=== PATIENT | female | born 1960 ===

== ENCOUNTER 2025-03-09 09:44 | Outpatient (AMB) | payer MEDICAID, SELFPAY ==
--- OUTSIDE RECORDS SUMMARY | 2025-03-09 09:53 | XMS_ITS | Clinical Summary ---
Author Organization [facility] Address [address] [place] [address] Care Team Providers Care Resin Filterer Name Role Phone Laurel Flower PA-C Primary Care Provider Source Comments PLEASE NOTE, if this patient is a minor, it may be UNLAWFUL to discuss sensitive information that is contained in these records (such as FAMILY PLANNING, MENTAL HEALTH or SUBSTANCE ABUSE) with the minor patient's parent or other person without the patient's specific authorization.[facility] Allergies No known active allergies Medications blood-glucose meter monitoring kitIndications:T ype 2 diabetes mellitus with complication, without long-term current use of insulin ([facility]) as needed for blood glucose monitoring Freestyle glucometer. Dx: E11.9 Check BG once daily. 1 Each 03/27/20 22 Active blood sugar diagnostic (FREESTYLE TEST) stripsIndication s:Type 2 diabetes mellitus with complication, without long-term current use of insulin ([facility]) Use to check blood sugars TID 200 Each 11 08/30/19 24 Active aspirin [address] tabletIndication s:Type 2 diabetes mellitus with complication, without long-term current use of insulin ([facility]) TOME ALESSANDRO TABLETA TODOS [place] 90 Tablet 3 02/07/20 24 Active amLODIPine (NORVASC) 5 mg tabletIndication s:Essential hypertension Take 1 Tablet by mouth once daily 90 Tablet 3 02/07/20 24 Active polyethylene glycol, PEG, 3350 (GLYCOLAX) 17 gram/dose powderIndication s:Other constipation Take 17 g by mouth once daily 510 g 1 06/16/20 24 Active glipiZIDE (GLUCOTROL) 10 mg tabletIndication s:Type 2 diabetes mellitus with hyperglycemia, without long-term current use of insulin ([facility]) TOME ALESSANDRO TABLETA TODOS [place] CON [place] 90 Tablet 3 09/07/19 25 Active metFORMIN (GLUCOPHAGE) 1,000 mg tabletIndication s:Type 2 diabetes mellitus with hyperglycemia, without long-term current use of insulin ([facility]) TOME ALESSANDRO TABLETA DOS VECES AL LINETTE CON ALIMENTO 180 Tablet 3 09/07/19 25 Active gabapentin (NEURONTIN) 300 mg capsuleIndicatio ns:Chronic right-sided low back pain with right-sided sciatica Take 1 Capsule by mouth 2 (two) times daily 60 Capsule 5 09/08/19 25 Active carvediloL (COREG) 25 mg tabletIndication s:Essential hypertension TAKE 1 TABLET BY MOUTH TWICE DAILY. 180 Tablet 1 10/26/19 25 Active dulaglutide (TRULICITY) 1.5 mg/0.5 mL pen injectorIndicati ons:Type 2 diabetes mellitus with hyperglycemia, without long-term current use of insulin ([facility]) Inject 1.5 mg into the skin once a week 2 mL 2 11/29/19 25 Active lancets (FREESTYLE LANCETS) 28 gaugeIndications :Type 2 diabetes mellitus with hyperglycemia, without long-term current use of insulin ([facility]) USAR 1-2 VECES AL LINETTE 100 Each 11 11/29/19 25 Active phenazopyridine (PYRIDIUM) 100 mg tabletIndication s:Pain with urination Take 1 Tablet by mouth 3 (three) times daily with meals. 9 Tablet 12/23/19 25 Active chlorthalidone (HYGROTEN) 25 mg tabletIndication s:Essential hypertension TAKE 1 TABLET BY MOUTH EVERY DAY 90 Tablet 01/29/20 25 Active lidocaine (LIDODERM) 5 % patchIndications :Chronic right-sided low back pain with right-sided sciatica APPLY 1 PATCH TO AFFECTED AREA DAILY FOR A MAXIMUM OF 12 HOURS, FOLLOWED BY REMOVAL FOR 12 HOURS. 30 Patch 02/08/20 25 Active rosuvastatin (CRESTOR) 20 mg tabletIndication s:Essential hypertension TAKE 1 TABLET BY MOUTH EVERYDAY AT BEDTIME 90 Tablet 1 02/18/20 25 Active rosuvastatin (CRESTOR) 20 mg tabletIndication s:Essential hypertension TAKE 1 TABLET BY MOUTH EVERYDAY AT BEDTIME 90 Tablet 1 08/17/19 25 025 Discontinued Active Problems Problem Noted Date Diagnosed Date Chronic right-sided low back pain with right-savannah ed sciatica 09/08/2024 Chronic left-sided low back pain without sciatic a 09/08/2024 Class 3 severe obesity due t o excess calories without serious comorbidity with body mass index (BMI) of 50.0 to 59.9 in adult ([facility]) 03/23/2024 Food insecurity 02/07/2024 Financial difficulties 02/07/2024 Housing problems 02/07/2024 Lack of access to transportation 02/07/2024 Abnormal cardiovascular stress test 12/30/2022 Overview (12/30/2022): 12/18/2022: Stress test: Ordered by different provider. EF at rest: 49 %. See attached record Non-recurrent bilateral ingu inal hernia without obstruction or gangrene 02/07/2020 Assessment & Plan (02/07/2020 12:29 PM EDT): CT 09/14 showed Impression: 1. Bilateral ovarian cystic structures which are incompletely characterized by CT. 2. Mildly enlarged uterus, possibly due to underlying leiomyomas, decreased in size since 2011. 3. Small fat-containing midline anterior abdominal wall hernia, unchanged. Morbid obesity ([facility]) 02/18/2018 Overview (02/18/2018): Per [facility] Diverticulitis 02/18/2018 Overview (02/18/2018): Per [facility] Coronary artery disease with stable angina pectoris ([facility]) 02/18/2018 Overview (02/18/2018): Per [facility] Moderate persistent asthma without complication ([facility]) 07/25/2017 Essential hypertension 07/25/2017 Gastroesophageal reflux disease without esophagi tis 07/25/2017 Major depressive disorder in remission ([facility]) 07/25/2017 Type 2 diabetes mellitus wit h hyperglycemia, without long-term current use of insulin ([facility]) 07/23/2017 Obstructive sleep apnea 07/23/2017 Encounters Date Type Department Care Team Description 01/25/2025 1:40 PM EDT Office Visit [address] [phone] Heather Arango RN 01/22/2025 Interim Notes [address] [address] Mary Burns 01/18/2025 Interim Notes [address] [address] Maryann Hernandez 01/18/2025 Interim Notes [address] [address] Mary Burns 01/09/2025 Results Follow-Up [address] [phone] Laurel Flower PA-C 12/28/2024 Results Follow-Up [address] [phone] Laurel Flower PA-C 12/22/2024 3:20 PM EDT Office Visit [address] [phone] Laurel Flower PA-C from Last 3 Months Immunizations Immunization Administration Dates Next Due Hep B, Adult/Adol ([id number]/RECOMBIVAX-AD ULT) 04/21/2016 INFLUENZA, SEASONAL, INJECTABLE 06/12/2015,05/26 PNEUMOCOCCAL CONJUGATE PCV 20 (Prevnar 20) 03/16 PNEUMOCOCCAL POLYSACCHARIDE PPV23 (Pneumovax 23) 03/05/2007 TDAP 04/21/2016 Td (adult),2 Lf tetanus toxo id (TDVAX), preservative free 03/05/2009 ZOSTER VACCINE, RECOMBINANT (SHINGRIX) 4,03/16/2023 Family History Medical History Relation Name Comments Diabetes Father Heart Problems Father Cancer Maternal Aunt at age 55 Diabetes Mother Relation Name Status Comments Father Maternal Aunt Mother Alive Social History Tobacco Use Types Packs/Day Years Used Date Smoking Tobacco: Never Smokeless Tobacco: Never Tobacco Cessation:Counseling Given: Yes Alcohol Use Standard Drinks/Week Comments No 0 (1 standard drink = 0.6 oz pur e alcohol) Social Connections Answer Date Recorded How often do you feel lonely or isolated from th ose around you? 1 01/18/2025 Financial Resource Strain Answer Date R ecorded Hard to pay for: Food 2 01/18/2025 Stress Answer Date Recorded Do you feel these kinds of stress these days? 1 01/18/2025 Physical Activity Answer Date Recorded Physical Activity 0 01/03/2020 Food Insecurity Answer Date Recorded Hard to pay for: Food 2 01/18/2025 Transportation Needs Answer Date Record ed In the past 12 months, has l ack of transportation kept you from medical appointments, meetings, work or from getting things needed for daily living? (Check all that apply) 2 2024 Housing Stability Answer Date Recorded Hard to pay for: Rent/Mortgage payment 1 01/18/2025 Safety and Environment Answer Date Gabriel rded Safety 0 01/03/2020 Utilities Answer Date Recorded Hard to pay for: Utilities 1 01/18 Employment Answer Date Recorded Stress 0 01/03/2020 Comments No Sex and Gender Information Value Date Recorded Sex Assigned at Female 07/23/2017 12:14 PM PST Legal Sex Female 12:05 PM PST Gender Identity Female 07/23/2017 12:14 PM PST Sexual Orientation Straight 07/23/2017 12 :14 PM PST Last Filed Vital Signs Vital Sign Reading Time Taken Comments Blood Pressure 134/76 12/22/2024 3:29 PM EDT Pulse 70 12/22/2024 3:29 PM EDT Temperature 37.1 C (98.7 F) 12/22/2024 3:29 PM EDT Respiratory Rate 18 12/22/2024 3:29 PM EDT Oxygen Saturation 96% 11/28/2024 2:07 PM EDT Inhaled Oxygen Concentration - - Weight 142 kg (313 lb) 12/22/2024 3:29 PM EDT Height 160 cm (5' 3 ) 11/28/2024 2:07 PM EDT Body Mass Index 55.45 11/28/2024 2:07 PM EDT Plan of Treatment Health Maintenance Due Date Last Done Comments Anxiety Screening 1961 Dental Examination 1961 HPV Screening 1961 Pap + HPV 1961 Cervical Cancer Screening [address] Colonography 2006 Colonoscopy 2006 Colorectal Cancer Screening 2006 FIT/gFOBT 2006 Fecal DNA 2006 Flexible Sigmoidoscopy 2006 Imm-Hepatitis B (2 of 3 - 19 + 3-dose series) 05/19/2016 04/21/2016 [id number] ( season) 2024 Alcohol and Drug Screen 07/26/2024 09/15/19 24, 04/01/2021, 12/10/2020, Additional history exists Retinopathy Screening 08/03/2024 05/03/2024 , 09/15/2023 (Managed by Outside Provider), 03/10/2023, Additional history exists Urine Albumin Creatinine Rat io Screening 09/15/2024 09/15/2023, 12/11/2021, 09/06/2019, Additional history exists Depression Monitoring 03/03/2025 12/01/2024 , 02/07/2024, 09/15/2023, Additional history exists Imm-Influenza (#1) 2025 06/12/2015, 1 07/26/2010, 04/30/2009 Hemoglobin A1c 05/31/2025 11/28/2024, 12/0 10/2023, 02/07/2024, Additional history exists Annual Wellness (Adult): Indicated (All Coverage) 06/16/2025 06/16/2024, 03/16/2023, 12/10/2020, Additional history exists Tobacco Screening 06/16/2025 06/16/2024 Lipid Screening 06/28/2025 06/28/2024, 0808/2022, 11/13/2022, Additional history exists Breast Cancer Screening (Mammogram) 08/01/2025 08/01/2024, 08/01/2024, 03/25/2023 Serum Creatinine 01/15/2026 01/15/2025, 10/2023, 02/07/2024, Additional history exists Diabetes Foot Exam 01/25/2026 01/25/2025, 03/16/2023 Imm-DTaP/Tdap/Td (3 - Td or Tdap) 05/29/2031 05/29/2021, 04/21/2016, 03/05/2009 HIV Screening Completed 07/23/2017 Hepatitis C Screening Completed 12/11/2021, 017 Imm-Pneumococcal 50+ Completed 03/16/2023, 03/05/20 07 Imm-Zoster, Recombinant Completed 06/16/2024, 03/16 Cervical Ablation/Cold-Knife Conization Discontinued Cervical Cryotherapy Discontinued Colposcopy Discontinued Endometrial Biopsy Discontinued Excision/Leep Discontinued HPV Genotyping Discontinued Vaginal Pap Discontinued Vulvoscopy Discontinued Goals Goal Patient Goal Type Associated Problems Recent Progress Patient-Stated? Author Blood Pressure < 130/80 Blood Pressure Essential hypertension 134/76(2024 3:29 PM EDT) No Oumar Loza, PharmD HEMOGLOBIN A1C < 7.0 Result Component Type 2 diabetes mellitus with hyperglycemia, without long-term current use of insulin ([facility]) 6.7( 2:41 PM EDT) No Oumar Loza, PharmD Procedures Procedure Name Priority Date/Time Associated Diagnosis Comments OTHER ORDERS SCANNED DOCUMENT 01/16/2025 3:[address] ABDOMEN & PELVIS W/O CONTRAST MATERIAL Routine 01/05/2025 3:00 AM EDT Flank pain Pain with urination URINALYSIS, MULTISTIX (POCT) Routine 12/22/2024 4:29 PM EDT Flank pain Pain with urination URINE CULTURE W ID & SENS Routine 12/22/2024 3:43 PM EDT Pain with urination RFLX - REFLEXIVE URINE CULTURE Routine 12/22/2024 3:43 PM EDT Pain with urination URINALYSIS, COMPLETE W/REFLEX TO CULTURE Routine 12/22/2024 3:43 PM EDT Flank pain Pain with urination OTHER ORDERS SCANNED DOCUMENT 12/13/2024 3:00 AM EDT HGBA1C W/MPG Routine 11/28/2024 2:41 PM EDT Type 2 diabetes mellitus with hyperglycemia, without long-term current use of insulin ([facility]) REFERRAL FOR MAMMOGRAM Routine 08/01/2024 3:00 AM EST Screening mammogram, encounter for COMPREHENSIVE METABOLIC PANEL Routine 06/28/2024 1:26 PM EST Type 2 diabetes mellitus with complication, without long-term current use of insulin ([facility]) Essential hypertension LIPIDS W RFLX TO DIRECT LDL Routine 06/28/2024 1:26 PM EST Essential hypertension Class 3 severe obesity due to excess calories without serious comorbidity with body mass index (BMI) of 50.0 to 59.9 in adult ([facility]) EYE EXAM 05/03/2024 3:00 AM EDT MICROALBUMIN/CREATINI NE RATIO, URINE, RANDOM Routine 09/15/2023 2:06 PM EST Type 2 diabetes mellitus with complication, without long-term current use of insulin ([facility]) ACUTE HEPATITIS PANEL W/RFLX Routine 12/11/2021 9:15 AM EDT Hepatomegaly ANTIBODY HIV-1&HIV-2 SINGLE RESULT Routine 07/23/2017 4:30 PM EST Routine general medical examination at a health care facility from Last 3 Months or Most Recently Relevant to Health Maintenance Results * OTHER ORDERS SCANNED DOCUMENT (01/16/2025 3:00 AM EDT) Only the most recent of2 resultswithin the time period is included. 01/16/2025 3:00 AM EDT us Laurel Flower PARowena SCAN OTHER ORDERS Final Resu lt * CT ABDOMEN & PELVIS W/O CONTRAST MATERIAL (01/05/2025 3:00 AM EDT) 01/05/2025 3:00 AM EDT Laurel Flower PA-C IMG CT Final Result * (ABNORMAL) URINALYSIS, MULTISTIX (POCT) Urine Routine (12/22/2024 4:29 PM EDT) URINE GLUCOSE NEGATIVE NEGATIVE [facility] OFF[facility] POCT URINE BILIRUBIN SMALL(A) NEGATIVE [facility]- BACK OFFICE POCT URINE KETONES NEGATIVE NEGATIVE [facility] POCT URINE SPECIFIC GRAVITY 1.030(A) <=1.005 - >=1.030 [facility] POCT URINE BLOOD NEGATIVE NEGATIVE [facility] POCT URINE PH 5.5 5.0 - 8.5 [facility] POCT URINE PROTEIN 100 (2+)(A) Negative [facility] BACK OFF[facility] POCT URINE UROBILINOGEN 1.0 0.2 - 1.0 E.U./dL [facility] POCT URINE NITRITE NEGATIVE NEGATIVE [facility] POCT URINE LEUKOCYTES NEGATIVE NEGATIVE [facility] POCT URINE COLOR YELLOW STRAW, YELLOW [facility] POCT ODOR URINE Normal Normal [facility] POCT CLARITY OF URINE CLEAR CLEAR [facility] POCT Urine Urine specimen / Unknown 12/22/2024 4:29 PM EDT aLurel Flower PA-C LAB URINE AMBULATORY Final R esult [facility]- BACK OFFICE POCT * URINE CULTURE W ID & SENS Routine (12/22/2024 3:43 PM EDT) CULTURE See Note [facility] Comment: CULTURE, URINE, ROUTINE Micro Number: [id number] Test Status: Final Specimen Source: Urine Specimen Quality: Adequate Result: Mixed genital amaury isolated. These superficial bacteria are not indicative of a urinary tract infection. No further organism identification is warranted on this specimen. If clinically indicated, recollect clean-catch, mid-stream urine and transfer immediately to Urine Culture Transport Tube. 12/22/2024 3:43 PM EDT 12/23/2024 6:43 AM EDT us Laurel Flower PA-C LAB - MICROBIOLOGY AMBULATOR Y Final Result Performing Organization Address City/[facility]/ZIP Co de Phone Number [employer] [address] [address], [employer] [facility] [address] [place] [address] * (ABNORMAL) URINALYSIS, COMPLETE W/REFLEX TO CULTURE Urine Routine (12/22/2024 3:43 PM EDT) COLOR DARK YELLOW YELLOW [employer] [facility] APPEARANCE TURBID(A) CLEAR [employer] [place] [employer] SPECIFIC GRAVITY 1.033 1.001 - 1.035 [employer] [facility] URINE PH 5.5 5.0 - 8.0 [facility] GLUCOSE NEGATIVE NEGATIVE [employer] [place] [employer] BILIRUBIN 2+(A) NEGATIVE [facility] Comment: Presumptive positive bilirubin. Consider confirmation by serum bilirubin if clinically indicated. KETONES TRACE(A) NEGATIVE [employer] [facility] OCCULT BLOOD NEGATIVE NEGATIVE [employer] [facility] URINE PROTEIN 1+(A) NEGATIVE [facility] NITRITE NEGATIVE NEGATIVE [employer] [place] [employer] LEUKOCYTE ESTERASE 1+(A) NEGATIVE [employer] [facility] URINE LEUKOCYTES 6-10(A) 0 - 5 /HPF [employer] [facility] RBC NONE SEEN < OR = 2 [employer] [facility] SQUAMOUS EPITHELIAL CELLS PACKED(A) < OR = 5 [employer] [facility] BACTERIA NONE SEEN NONE SEEN [facility] HYALINE CAST 10-20(A) NONE SEEN /LPF [employer] [facility] SEE NOTE See Below [employer] [facility] Comment: This urine was analyzed for the presence of WBC, RBC, bacteria, casts, and other formed elements. Only those elements seen were reported. Urine Urine specimen / Unknown 12/22/2024 3:43 PM EDT 12/23/2024 6:43 AM EDT us Laurel Flower PA-C LAB URINE AMBULATORY Edited Result - Final Performing Organization Address City/[facility]/ZIP Co de Phone Number [employer] [facility] [address] [address], [employer] [facility] [address] [place] [address] * RFLX - REFLEXIVE URINE CULTURE Routine (12/22/2024 3:43 PM EDT) REFLEXIVE URINE CULTURE See Below [employer] [facility] Comment:CULTURE INDICATED - RESULTS TO FOLLOW 12/22/2024 3:43 PM EDT 12/23/2024 6:43 AM EDT Laurel Flower PA-C LAB - MICROBIOLOGY AMBULATOR Y Edited Result - Final Performing Organization Address City/[facility]/ZIP Co de Phone Number [employer] [address] [address], [employer] [address] [address] * (ABNORMAL) HGBA1C W/MPG (11/28/2024 2:41 PM EDT) HEMOGLOBIN A1C 6.7(H) <5.7 % [employer] [facility] Comment: For someone without known diabetes, a hemoglobin A1c value of 6.5% or greater indicates that they may have diabetes and this should be confirmed with a follow-up test. For someone with known diabetes, a value <7% indicates that their diabetes is well controlled and a value greater than or equal to 7% indicates suboptimal control. A1c targets should be individualized based on duration of diabetes, age, comorbid conditions, and other considerations. Currently, no consensus exists regarding use of hemoglobin A1c for diagnosis of diabetes for children. MEAN PLASMA GLUCOSE 161 mg/dL (calc) [employer] [facility] Blood Blood / Unknown 11/28/2024 2 :41 PM EDT 11/28/2024 2:41 PM EDT Tucker Grace PharmD LAB - BLOOD D RAW Final Result Performing Organization Address [facility]/ZIP Co de Phone Number [employer] [address] [address], [employer] [address] [address] * REFERRAL FOR MAMMOGRAM SCREENING (08/01/2024 3:00 AM EST) 08/01/2024 3:00 AM EST us Laurel Flower PA-C IMG RFL MAMMO Final Result * LIPIDS W RFLX TO DIRECT LDL (06/28/2024 1:26 PM EST) CHOLESTEROL, TOTAL 150 <200 mg/dL [employer] [facility] HDL CHOLESTEROL 67 > OR = 50 mg/dL [employer] [facility] TRIGLYCERIDES 125 <150 mg/dL [employer] [facility] LDL-CHOLESTEROL 62 99 mg/dL (calc) [employer] [facility] Comment: Reference range: <100 Desirable range <100 mg/dL for primary prevention; <70 mg/dL for patients with CHD or diabetic patients with > or = 2 CHD risk factors. LDL-C is now calculated using the Miguelina calculation, which is a validated novel method providing better accuracy than the Friedewald equation in the estimation of LDL-C. Miguel SS et al. GREGORY. 2013;310(19): 2668-1284 (http://education.Loterity/faq/UBY059) CHOL/HDLC RATIO 2.2 <5.0 (calc) [employer] [facility] NON-HDL CHOLESTEROL 83 <130 mg/dL (calc) [employer] [facility] Comment: For patients with diabetes plus 1 major ASCVD risk factor, treating to a non-HDL-C goal of <100 mg/dL (LDL-C of <70 mg/dL) is considered a therapeutic option. Blood Blood / Unknown 06/28/2024 1 :26 PM EST 06/28/2024 1:27 PM EST Narrative [employer] [facility] - 06/29/2024 5:49 AM EST FASTING:YES us Laurel Flower PA-C LAB - BLOOD DRAW Final Resul t [employer] [address] [address], [employer] [address] [address] * (ABNORMAL) COMPREHENSIVE METABOLIC PANEL (06/28/2024 1:26 PM EST) GLUCOSE 99 65 - 99 mg/dL [employer] [facility] Comment: Fasting reference interval UREA NITROGEN (BUN) 28(H) 7 - 25 mg/dL [employer] [facility] CREATININE (blood) 1.12(H) 0.50 - 1.05 mg/dL [employer] [facility] EGFR 55(L) > OR = 60 mL/min/1. 73m2 [employer] [facility] BUN/CREATININE RATIO 25(H) 6 - 22 (calc) [employer] [facility] SODIUM 142 135 - 146 mmol/L [employer] [facility] POTASSIUM 4.3 3.5 - 5.3 mmol/L [employer] [facility] CHLORIDE 104 98 - 110 mmol/L [employer] [facility] CARBON DIOXIDE 29 20 - 32 mmol/L [employer] [facility] CALCIUM 9.2 8.6 - 10.4 mg/dL [employer] [facility] PROTEIN, TOTAL 7.5 6.1 - 8.1 g/dL [employer] [facility] ALBUMIN 4.4 3.6 - 5.1 g/dL [employer] [facility] GLOBULIN 3.1 1.9 - 3.7 g/dL (calc) [employer] [facility] ALBUMIN/GLOBULI N RATIO 1.4 1.0 - 2.5 (calc) [employer] [facility] BILIRUBIN, TOTAL 0.4 0.2 - 1.2 mg/dL [employer] [facility] ALKALINE PHOSPHATASE 93 37 - 153 U/L [employer] [facility] AST 11 10 - 35 U/L [employer] [facility] ALT 11 6 - 29 U/L [employer] [facility] Blood Blood / Unknown 06/28/2024 1 :26 PM EST 06/28/2024 1:27 PM EST Narrative [employer] [facility] - 06/29/2024 5:49 AM EST FASTING:YES Laurel Flower PA-C LAB - BLOOD DRAW Final Resul t [employer] [address] [address], [employer] [address] [address] * EYE EXAM (05/03/2024 3:00 AM EDT) 05/03/2024 3:00 AM EDT Laurel Flower PA-C OTHER Edited Resul t - Final * MICROALBUMIN/CREATININE RATIO, URINE, RANDOM (09/15/2023 2:06 PM EST) CREATININE, RANDOM URINE 169 20 - 275 mg/dL [facility] MICROALBUMIN 2.2 mg/dL [facility] [employer] [facility] Comment: Reference Range Not established MICROALBUMIN/CREA TININE RATIO, RANDOM URINE 13 <30 mcg/mg creat [facility] Comment: The ADA defines abnormalities in albumin excretion as follows: Albuminuria Category Result (mcg/mg creatinine) Normal to Mildly increased <30 Moderately increased 30-299 Severely increased > OR = 300 The ADA recommends that at least two of three specimens collected within a 3-6 month period be abnormal before considering a patient to be within a diagnostic category. Urine Urine specimen / Unknown 09/15/2023 2:06 PM EST 09/15/2023 2:07 PM EST Laurel Flower PA-C LAB URINE AMBULATORY Final R esult [employer] [address] [address], [employer] [address] [address] * HEPATITIS PANEL W/RFLX (12/11/2021 9:15 AM EDT) HEPATITIS B CORE IGM ANTIBODY NON-REACT VERN NON-REACT VERN [employer] [facility] HEPATITIS C ANTIBODY NON-REACT VERN NON-REACT VERN [facility] SIGNAL TO CUT-OFF 0.11 <1.00 [facility] Comment: HCV antibody was non-reactive. There is no laboratory evidence of HCV infection. In most cases, no further action is required. However, if recent HCV exposure is suspected, a test for HCV RNA (test code 65748) is suggested. For additional information please refer to http://education.VOLITIONRX/faq/DXB18i5 (This link is being provided for informational/ educational purposes only.) HEPATITIS A IGM ANTIBODY NON-REACT VERN NON-REACT VERN [place] [facility] HEPATITIS B SURFACE ANTIGEN NON-REACT VERN NON-REACT VERN [facility] Blood Blood / Unknown 12/11/2021 9 :15 AM EDT 12/11/2021 9:16 AM EDT Narrative [facility] - 12/12/2021 11:39 PM EDT For additional information, please refer to http://education.[employer]/faq/YHW252 (This link is being provided for informational/ educational purposes only.) Laurel Flower PA-C LAB - BLOOD DRAW Final Resul t Performing Organization Address City/[facility]/ZIP Co de Phone Number Sales Rabbit [facility] [address] [address], Sales [employer] [address] [address] * HIV-1 & HIV-2 ANTIBODIES (07/23/2017 4:30 PM EST) [facility] HIV 1 AND 2 ANTIBODY SCREEN NEGATIVE NEGATIVE [facility] Comment: This assay is a 4th generation assay allowing for earlier detection of HIV infection by detecting the presence of the HIV-1 p24 antigen as well as the traditional antibodies to HIV type 1 (including group O) and type 2. Use of a 4th generation assay is the current CDC recommendation for HIV screening. Blood specimen (specimen) Blood / Unknown 07/23/2017 4:30 PM EST 07/23/2017 4:34 PM EST Narrative [facility] - 07/23/2017 8:20 PM EST [facility] [address] [place] [id number] PT ID [id number] ORD# [id number] Megan Lizama PA-C LAB - BLOOD DRAW Edited R esult - Final Performing Organization Address City/[facility]/ZIP Co de Phone Number [facility] If You Can[address] [address], from Last 3 Months or Most Recently Relevant to Health Maintenance [place] D[place] [address] [employer] Care Teams Resin Filterer Relationship Specialty Start Date End Date Laurel Flower PA-C [address] [place] [address] PCP - General Internal Medicine 03/11/21
--- OUTSIDE RECORDS SUMMARY | 2025-03-09 09:53 | XMS_ITS | Clinical Summary ---
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 Role Phone Unavailable Primary Care Provider Unavailabl e Encounters Date Type Department Care Team Description 02/13/2025 Population Health Risk Score [facility] (C3) Department [address] [facility] [address] [place] [address] Provider, Population Health Generic from Last 3 Months Social History Tobacco Use Types Packs/Day Years Used Date Smoking Tobacco: Never Assessed Comments Unknown Sex and Gender Information Value Date Recorded Sex Assigned at Not on file Legal Sex Female 9:30 PM EDT Gender Identity Not on file Sexual Orientation Not on file Plan of Treatment Health Maintenance Due Date Last Done Comments CT Colonography 1961 Colonoscopy 1961 Colorectal Cancer Screening 1961 Depression Screening 1961 FIT DNA/Cologuard 1961 FIT 1961 FOBT 1961 Lipid Panel 1961 SDOH Screening 1961 Sigmoidoscopy 1961 Disability Screening 1961 Alcohol/Substance Use Screening 1973 Tobacco Screening 1973 Hepatitis C Screening 1979 Pap Smear 1982 Cervical Cancer Screening 1991 HPV/Cotest 1991 Mammogram 2001 Hepatitis B Vaccines (2 of 3 - 19+ 3-dose series) 05/19/2016 04/21/2016 RSV Patients and Patients Aged 60 years or older (1 - Risk 60-74 years 1-dose series) 2021 COVID-19 Vaccine (1 - 2023-2 5 season) 2024 Influenza Vaccine (#1) 2025 5, 05/26/2011 DTaP/Tdap/Td Vaccines (2 - T d or Tdap) 04/21/2026 04/21/2016, 03/05/2009 HIV Screening Completed 07/23/2017 Pneumococcal Vaccine: 50+ Years Completed 03/16/2023, 03/05/2007 Zoster Vaccines Completed 06/16/2024, 03/16/2023 HIB Vaccines Aged Out No longer eligi ble based on patient's age to complete this topic HPV Vaccines Aged Out No longer eligi ble based on patient's age to complete this topic Hepatitis A Vaccines Aged Out No long er eligible based on patient's age to complete this topic IPV Vaccines Aged Out No longer eligi ble based on patient's age to complete this topic Meningococcal B Vaccine Aged Out No l onger eligible based on patient's age to complete this topic Meningococcal Vaccine Aged Out No neil cuco eligible based on patient's age to complete this topic RSV under 20 months Aged Out No longe r eligible based on patient's age to complete this topic Rotavirus Vaccines Aged Out No longer eligible based on patient's age to complete this topic
--- NOTE | 2025-03-09 09:54 | MHC.OFFVIS ---
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 She is a patient of . She is seen for the following urologic conditions - chronic cystitis Persistent urgency and frequency Prior significant UTI CT imaging through [facility] shows bladder thickening Gives history of recurrent UTI Background diabetes Initiating symptomatic therapy with trial oxybutynin Start methenamine with vitamin-C Will call of oxybutynin useful Six-month follow-up nurse-practitioner Review of Systems Const Denies chills and Denies fever(s) Card Reports no additional complaints and Denies syncope Resp Denies cough GI Denies abdominal pain and Denies heartburn Reports as per HPI and Denies change in libido Neuro Denies syncope Psych Denies change in libido Endo Denies change in libido Physical Exam Const General: cooperative, healthy appearing, comfortable and no acute distress Orientation/consciousness: patient oriented x3 HEENT Face and sinus: Yes normal facial exam Mouth: moist mucous membranes Neck Neck: Yes normal visual inspection, Yes full ROM and Yes trachea midline Chest Chest palpation & inspection: normal inspection of the chest Resp Effort & Inspection: normal respiratory effort, able to speak in complete sentences and no respiratory distress GI Inspection: Yes normal to inspection Back/Spine/Pelvis Cervical Spine: normal cervical lordosis Thoracic/Lumbar Spine: thoracic and lumbar spine normal to inspection Skin General skin exam: no rashes or lesions noted Neuro General: patient oriented x3, gait normal, tone normal and moves all extremities Extrem General: Yes normal to inspection and Yes capillary refill normal Assessment & Plan Assessment & Plan (1) Chronic interstitial cystitis: Code(s): N30.10 - Interstitial cystitis (chronic) without hematuria Category: Medical Plan Chronic cystitis with overactive bladder Start suppression Try oxybutynin Three-month follow-up nurse-practitioner Medications: New ascorbic acid (vitamin C) 1,000 mg PO DAILY 90 tabs 1RF 90 days N30.10 - Interstitial cystitis (chronic) without hematuria methenamine hippurate 1 g PO DAILY 90 tabs 1RF 90 days N30.10 - Interstitial cystitis (chronic) without hematuria oxybutynin chloride ER 5 mg PO DAILY 30 tabs 1RF 30 days N30.10 - Interstitial cystitis (chronic) without hematuria Patient Instructions: This note is constructed using voice recognition software. While every effort has been made to ensure accuracy area safety manager errors may have been included. Imaging studies, laboratory and physical exam results were discussed and reviewed in detail. No major barriers to patient understanding were identified. An opportunity to ask questions regarding the treatment plan was provided. All questions were answered. The patient expressed understanding and agreement with the above treatment plan. The patient is aware they should contact our office by phone for worsening of their current condition or the appearance of new urologic symptoms. Compliance is encouraged with any medications and followup testing that is ordered. It is a privilege to participate in the urologic care of your patient. If you have any questions or concerns regarding treatment for the above conditions, or other urologic issues, please do not hesitate to contact me. The office telephone contact is [phone]. Sincerely, Dr Abelino Lynch MD, [facility] - Urology Compassionate Specialist Care for the Genitourinary System Coding Level of Care Code New Pt Level 4 (01960) Diagnoses Chronic interstitial cystitis N30.10
== END 2025-03-09 11:15 | disposition home or self-care (01) ==
LOC: HO.HUSH 09:45
PROVIDERS: PCP Physician Assistant; Visit Provider Urology
DX: N30.10 Interstitial cystitis (chronic) without hematuria (principal)
CPT/HCPCS: 99204

== ENCOUNTER → 2025-03-09 09:44 | Outpatient (BNVA) | payer MEDICAID, SELFPAY | PROVIDERS: PCP Physician Assistant; Visit Provider Urology | DX: N30.10 Interstitial cystitis (chronic) without hematuria (principal) | CPT/HCPCS: 99202 ==